=== PATIENT | female | born 1945 | race Asian ===

== ENCOUNTER → 2017-11-28 | Outpatient (CLI) | payer MEDICARE ==
[~2017-11-28] MED LIST: ALBU3IS; AMLO5; B Complex1 EAC2; BUDE6HFA; CALCAVITDA; Cholecalciferol1 GM; DIPH50 PO; Flovent Diskus50 MCG; Glucosamine-Ch1 EA23; MONT10T; MULVITMIND
[2017-11-28 12:42] LABS: BASOPHILS ABSOLUTE AUTO 0.03 K/mm3 (0.00-0.23); BASOPHILS PERCENT AUTO 0 % (0-2); EOSINOPHILS ABSOLUTE AUTO 0.53 K/mm3 (0.00-0.68); EOSINOPHILS PERCENT AUTO 7 % (0-6); Hematocrit 37.9 % (33.0-51.0); Hemoglobin 12.9 g/dL (11.5-16.0); IMMATURE GRAN ABSOLUTE AUTO 0.02 K/mm3 (0.00-0.10); IMMATURE GRAN PERCENT AUTO 0 % (0-1); LYMPHOCYTES ABSOLUTE AUTO 0.98 K/mm3 (0.84-5.20); LYMPHOCYTES PERCENT AUTO 12 % (21-46); MONOCYTES ABSOLUTE AUTO 0.66 K/mm3 (0.16-1.47); MONOCYTES PERCENT AUTO 8 % (4-13); Mean Corpuscular HGB 29.7 pg (26.0-34.0); Mean Corpuscular Volume 87 fL (80-100); Mean Platelet Volume 8.9 fL (9.1-12.4); NEUTROPHILS PERCENT AUTO 73 % (41-73); Platelet Count 309 K/mm3 (150-400); RDW Coefficient Variation 12.1 % (11.7-14.2); Red Blood Cell Count 4.35 M/mm3 (3.80-5.20); White Blood Cell Count 8.12 K/mm3 (4.00-11.30)
[2017-11-28 12:46] LABS: Anion Gap 13 mmol/L (6-16); Blood Urea Nitrogen 9 mg/dL (8-24); Bun/Creatinine Ratio 13.2 (12.0-20.0); CO2, Blood 27 mmol/L (21-32); Calcium, Blood 9.1 mg/dL (8.5-10.1); Chloride, Blood 99 mmol/L (98-108); Creatinine, Blood 0.68 mg/dL (0.40-1.00); Glomerular Filtration Rate >60 (60-); Glucose, Blood 104 mg/dL (70-99); Potassium, Blood 3.2 mmol/L (3.5-5.5); Sodium, Blood 139 mmol/L (136-145)
== END | disposition home or self-care (01) ==
LOC: LAB EV 12:35 → LAB SHORT 12:35
PROVIDERS: Physician Assistant Surgical
DX: J18.0 Bronchopneumonia, unspecified organism (principal); J44.1 Chronic obstructive pulmonary disease with (acute) exacerbation
CPT/HCPCS: 80048; 85025; 87070; 87205

== ENCOUNTER → 2018-03-25 | Outpatient (CLI) | payer MEDICARE, OTHER ==
[~2018-03-25] MED LIST changes: +CEFD300 PO; +Zithromax250 MG PO
== END | disposition home or self-care (01) ==
LOC: LAB EV 12:05
DX: R91.8 Other nonspecific abnormal finding of lung field (principal)
CPT/HCPCS: 87070; 87205

== ENCOUNTER 2018-07-27 08:51 | Inpatient (IN) | payer MEDICARE, OTHER ==
[~2018-07-27] VITALS: Ht 154.9 cm; Wt 33.3 kg
[~2018-07-27 08:51] MED LIST changes: -ALBU3IS; +ALBU3IS INH; -AMLO5; +AMLO5 PO; +BUDE6HFA INH; -MONT10T; +MONT10T PO
[2018-07-27 10:17] LABS: Hematocrit 40.9 % (33.0-51.0); Hemoglobin 13.5 g/dL (11.5-16.0); Mean Corpuscular HGB 29.2 pg (26.0-34.0); Mean Corpuscular Volume 89 fL (80-100); Mean Platelet Volume 9.4 fL (9.1-12.4); Platelet Count 160 K/mm3 (150-400); RDW Coefficient Variation 12.2 % (11.7-14.2); RDW Standard Deviation 39.8 fL (35.1-46.3); Red Blood Cell Count 4.62 M/mm3 (3.80-5.20); White Blood Cell Count 7.33 K/mm3 (4.00-11.30)
[2018-07-27 10:36] LABS: Alanine Aminotransfer (ALT/SGP 41 U/L (12-78); Albumin, Blood 3.6 g/dL (3.4-5.0); Albumin/Globulin Ratio 0.9 (0.8-1.8); Alk Phos 105 U/L (50-136); Anion Gap 7 mmol/L (6-16); Aspartate Aminotrans (AST/SGOT 40 U/L (12-37); Bilirubin, Total 0.4 mg/dL (0.1-1.0); Blood Urea Nitrogen 11 mg/dL (8-24); Bun/Creatinine Ratio 23.3 (12.0-20.0); CO2, Blood 30 mmol/L (21-32); Calcium, Blood 8.6 mg/dL (8.5-10.1); Chloride, Blood 96 mmol/L (98-108); Creatinine, Blood 0.47 mg/dL (0.40-1.00); Globulin, Blood 3.8 g/dL (2.2-4.0); Glomerular Filtration Rate >60 (60-); Glucose, Blood 127 mg/dL (70-99); Potassium, Blood 3.9 mmol/L (3.5-5.5); Sodium, Blood 133 mmol/L (136-145); Total Protein, Blood 7.4 g/dL (6.4-8.2)
[2018-07-27 10:37] LABS: BASOPHILS PERCENT MAN 0 % (0-2); EOSINOPHILS PERCENT MAN 0 % (0-6); LYMPHOCYTES ABSOLUTE MAN 0.43 K/mm3 (0.84-5.20); LYMPHOCYTES PERCENT MAN 6 % (21-46); MONOCYTES ABSOLUTE MAN 0.14 K/mm3 (0.16-1.47); MONOCYTES PERCENT MAN 2 % (4-13); NEUTROPHILS ABSOLUTE MAN 6.74 K/mm3 (1.96-9.15); SEG NEUTROPHILS PERCENT MAN 92 % (41-73); TOTAL CELLS COUNTED 100
[2018-07-27] MEDS ORDERED: POTA10T PO (12:45)
[2018-07-27 17:27] LABS: Base Excess Venous 9.7 mmol/L; Bicarbonate Venous 31.2 mmol/L (24.0-30.0); PCO2 Venous 53.4 mmHg (38-42); PO2 Venous 41.4 mmHg (38-42); pH Blood Venous 7.42 (7.34-7.37)
--- NOTE | 2018-07-27 18:17 | NUR ---
PT ARRIVED TO THE MEDICAL FLOOR FORM THE ER AROUND 1500, A/OX3 UP WITH MINIMAL ASSIST TO THE BED, APPEARS TO BE MORE SOB WITH ACTIVITY, THE PT IS ON OXYGEN AT 3L/MIN, THE PT WAS ORIENTED TO THE ROOM LAYOUT AND CALL SYSTEM, CALL LIGHT IN REACH, I AGREE WITH THE SN CARDOZO ADMISSION ASSESSMENT AND WAS PRESENT DURING THE ASSESSMENT
--- NOTE | 2018-07-27 18:48 | NUR ---
SHIFT SUMMARY PT ARRIVED ON THE MEDICAL FLOOR AT ABOUT 1500. PT IS A&OX3. PT HAS BEEN CALM AND COOPERATIVE. ADMISSION ASSESSMENT COMPLETED AND PT ORIENTED TO THE ROOM. PT HAS BEEN LAYING IN BED WATCHING TV THIS AFTERNOON. 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 PT STATES NO PAIN AT THIS TIME. PT HAS NOT PRESENTED WITH SIGNS OF RESPIRATORY DISTRESS SINCE ARRIVING ON THE FLOOR. PT IS ON 3L OF O2. PT CURRENTLY EATING DINNER AND DENIES FURTHER NEEDS AT THIS TIME. WILL CONTINUE TO MONITOR.
--- NOTE | 2018-07-28 03:39 | NUR ---
SHIFT SUMMARY: PT IS ALERT AND ORIENTED. PT IS CALM AND COOPERATIVE WITH CARE. PT CALLS APPROPRIATELY. PT IS INDEPENDENT IN THE ROOM. PT ON 3 L O2 VIA NC KEEPING SATS > 90%. PT SLEPT MUCH OF THE NIGHT WHEN NOT DISTURBED. PT DENIES PAIN, NAUSEA, AND VOMITING. LUNGS ARE WHEEZY THROUGHOUT. NO ACUTE CHANGES OR COMPLICATIONS OVERNIGHT. WILL CONTINUE TO MONITOR.
[2018-07-28 04:41] LABS: BASOPHILS PERCENT AUTO 0 % (0-2); EOSINOPHILS PERCENT AUTO 0 % (0-6); Hematocrit 41.1 % (33.0-51.0); Hemoglobin 13.7 g/dL (11.5-16.0); Mean Corpuscular HGB 28.5 pg (26.0-34.0); Mean Corpuscular HGB Conc 33.3 g/dL (31.5-36.5); Mean Platelet Volume 9.3 fL (9.1-12.4); Platelet Count 171 K/mm3 (150-400); RDW Coefficient Variation 12.1 % (11.7-14.2); RDW Standard Deviation 37.7 fL (35.1-46.3); Red Blood Cell Count 4.81 M/mm3 (3.80-5.20); White Blood Cell Count 3.31 K/mm3 (4.00-11.30)
[2018-07-28 04:56] LABS: Anion Gap 6 mmol/L (6-16); Blood Urea Nitrogen 13 mg/dL (8-24); Bun/Creatinine Ratio 27.7 (12.0-20.0); CO2, Blood 32 mmol/L (21-32); Calcium, Blood 8.6 mg/dL (8.5-10.1); Chloride, Blood 99 mmol/L (98-108); Creatinine, Blood 0.47 mg/dL (0.40-1.00); Glomerular Filtration Rate >60 (60-); Glucose, Blood 129 mg/dL (70-99); Potassium, Blood 3.9 mmol/L (3.5-5.5); Sodium, Blood 137 mmol/L (136-145)
[2018-07-28 04:57] LABS: IMMATURE GRAN ABSOLUTE AUTO 0.01 K/mm3 (0.00-0.10); IMMATURE GRAN PERCENT AUTO 0 % (0-1); LYMPHOCYTES ABSOLUTE AUTO 0.61 K/mm3 (0.84-5.20); LYMPHOCYTES PERCENT AUTO 18 % (21-46); MONOCYTES ABSOLUTE AUTO 0.38 K/mm3 (0.16-1.47); MONOCYTES PERCENT AUTO 12 % (4-13); Mean Corpuscular Volume 85 fL (80-100); NEUTROPHILS ABSOLUTE AUTO 2.31 K/mm3 (1.96-9.15); NEUTROPHILS PERCENT AUTO 70 % (41-73)
--- NOTE | 2018-07-28 17:22 | NUR ---
SHIFT SUMMARY PT HAS BEEN ALERT AND ORIENTED THROUGH THIS SHIFT. PT IS CALM AND COOPERATIVE. PT HAS BEEN SITTING UP IN BED THROUGHOUT THE DAY. PT DENIES PAIN. PT REMAINS ON 3L O2 AND STATES THAT SHE STIL FEELS SHORT OF BREATH. LUNG SOUNDS CONTINUE TO BE TIGHT AND WHEEZY. PT STATES NO ADDITIONAL NEEDS AT THIS TIME. WILL CONTINUE TO MONITOR.
--- NOTE | 2018-07-28 18:24 | NUR ---
I AGREE WITH THE SN JULIANE MIRELES ASSESSMENT AND CARE OF THE PT TODAY
--- NOTE | 2018-07-29 03:59 | NUR ---
SHIFT SUMMARY: PT IS ALERT AND ORIENTED. PT IS CALM AND COOPERATIVE WITH CARE. PT CALLS APPROPRIATELY. PT IS INDEPENDENT IN THE ROOM. PT REPORTS MINOR SOB UPON EXERTION. PT DENIES PAIN, NAUSEA, AND VOMITING. PT SLEPT MUCH OF THE NIGHT WHEN NOT DISTURBED. POSSIBLE DC TODAY. NO ACUTE CHANGES OR COMPLICATIONS THIS SHIFT. BED IN LOW POSITION, CALL LIGHT WITHIN REACH. WILL REPORT TO DAY NURSE.
--- NOTE | 2018-07-29 15:49 | NUR ---
SHIFT SUMMARY 72 YR OLD FEMALE ADMITTED FOR HYPOXIA/COPD EXACERBATION. FULL CODE. REGULAR DIET. HARD OF HEARING. A&O X4, INDEPENDENT IN ROOM. LUNGS EXPIRATORY WHEEZES/SOB EPISODES-RECEIVING RT TREATMENTS. O2 IS AT 3 LPM (2 LPM @ HOME). LIVES ALONE. HOSPITALIST DECREASED FREQUENCY OF IV SOLUMEDROL TODAY FROM Q8 TO Q12. HOSPITALIST HOPES PT CAN BE WEANED TO ORAL STEROIDS TOMORROW. HX: COPD, HTN, BREAST CANCER. PT MAY BE ABLE DC IN TWO DAYS.
--- NOTE | 2018-07-29 16:47 | NUR ---
CALLED HOSPITALIST PT DIAGNOSED 7 YRS AGO WITH ASPERGILLUS INFECTION (FUNGAL). SHE WAS TOLD SHE THEN THAT SHE IS MORE SUSCEPTIBLE FOR THESE TYPES OF INFECTIONS. SHE IS CURIOUS IF A FUNGAL TYPE OF INFECTION COULD BE A POSSIBLE FACTOR IN THIS CURRENT EXACERBATION. HOSPITALIST STATED HE WOULD LOOK INTO THIS POSSIBILITY, PERHAPS ORDER A SPUTUM SAMPLE OR OTHER DIAGNOSTIC TEST, IF WARRANTED.
--- NOTE | 2018-07-30 03:49 | NUR ---
07/30/18 0345 PT SLEEPING WELL. NO DISTRESS NOTED.
--- NOTE | 2018-07-30 15:47 | NUR ---
[facility] VISIT AFTER REFERRAL REC'D DUE TO END STAGE PULM DISEASE. Review of EMR and Case conferenced with RN prior to visit. Johanna is well known to me from her participation in Pulmonary Rehab approx 8 years ago. She has had very few hospitalizations despite severe end stage COPD and bronchiectasis, with an FEV1 of 23% on most recent PFT. She sees Dr Kahn as her PCP and Dr Davis as her tool chaser most recently. She reports staying as active as she can. She also has a history of MV regurgitation and breast CA. She was evaluated in [place] for a lung transplant and was denied due to "too old and underweight" per pt. She has been O2 dependent with 2+L/min via nc at home with more when exerting herself. She lost her of 40+ years 3.5 years ago. She reports it was sudden and unexpected. "His heavy smoking and drining finally caught up with him". He was hospitalized for 2 weeks prior to his and in ICU for part of that time. She has three sons locally, grandchildren and four great grandchildren who are very young. She talked about her sadness re: not being able to hold or play with her great grandchildren due to her her SOBOE and generalized weakness. She is cachectic and sitting in bed crosslegged with elbows on knees in tripod position. She reports she cannot sit back in bed due to SOB. She is SOB with conversation. She reports being improved from time of admission but not as improved as she had hoped. She has done her best to stay out of the hospital and wants to return home [place]. She's hoping for tomorrow. She is currently a full code. We discussed this and what it meant at length. She thinks she did a "will" in [place] when being evaluated for pulmonary intervention but does not have a copy or know where it is. She said her oldest son, Jorge L, would be her surrogate decision maker in the event she was unable to communicate her wishes. She thinks she marked all the boxes "as my physician recommends". We discussed the probability that her regular Drs would not be the one seeing her in a critical care situation. Pt spoke about her experience, having to make decisions for her before his . She started expressing her wishes RE advanced care planning & I asked if she would like me to document her wishes. I offered to complete a POLST with her today. Pt and I began reviewing the POLST and discussing each option in detail. As we were discussing CPR and her wishes, her son KAROLYN Zavala and grandchild arrived. At her request we continued the conversation and I answered both her and her family's questions. Cedric is supportive of his mom's choices. He also was able to provide his brother Jorge L's contact information as the oldest son and surrogate decision maker. I noted this on the POLST, page 2. Pt states she does not want CPR. She does not want intubation. She would like limited interventions, IV medications, hospitalization if required to try to improve her lungs. She would accept bipap use and all interventions short of cardiopulmonary rescusitation, CPR and intubation. After POLST completed with pt and family, pt's wishes shared with her RN and . Order obtained to change pt's Code status to DNR per her wishes. REquested that Dr sign POLST. Once that is done, copies will be sent to Medical records for scanning into EMR and original given to pt. We discussed measures to limit exposure to lung irritants. I recommended nasal flush qhs and not just in the am as pt has been doing. Pt has had issue with mold in her mattress and we discussed removing mold or mattress if mold still present. Will request follow up per high risk cardiopulmonary follow up after d/c. Pt has completed MI previously and has continued to follow instructions and good self care to the best of her ability. She's always been very motivated to improve her health. She has not smoked for 25+ years but had second hand smoke from her . 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 All three sons are active in her life and supportive of her per pt and son, Cedric.
--- NOTE | 2018-07-30 17:12 | NUR ---
SHIFT SUMMARY NO CHANGES IN ASSESMENT AT THIS TIME. PT STARTING ORAL STEROIDS THIS EVENING. VSS. PT IND IN ROOM & DENIES NEEDS AT THIS TIME. PT CHANGED TO DNR STATUS. WILL CONTINUE TO MONITOR UNTIL TURNOVER IS COMPLETE. PT EXPECTED TO DC TOMORROW.
--- NOTE | 2018-07-31 04:55 | NUR ---
07/31/18 0500 AWAKENED FOR VITALS. C/O "BURNING STOMACH PROBABLY FROM THE PREDNISONE". COLD MILK GIVEN TO DRINK. SLEPT WELL WITH OCC TRIPS TO THE BATHROOM. ELEVATED BP THIS SHIFT.. DIABETES MANAGER HOSPITALIST WAS NOTIFIED LAST NIGHT BUT DECLINED ANY PRN ANTI-HYPERTENSIVE.
[2018-07-31 05:27] LABS: PCO2 Arterial 53.8 mmHg (35-45); PO2 Arterial 74.6 mmHg (80-100); pH Blood Arterial 7.44 (7.35-7.45)
[2018-07-31] MEDS ORDERED: ALBU2.5V5 NEB (12:30)
[2018-07-31] MEDS ORDERED: PRED10 PO (12:32)
[2018-07-31] MEDS ORDERED: CEFD300 PO (12:33)
[2018-07-31] MEDS ORDERED: OMEPRAZOLE20 MG PO (12:33)
--- NOTE | 2018-07-31 13:54 | NUR ---
PT DISCHARGED. PT DISCHARGED AT 1346. PT IN STABLE CONDITION WITH VSS. PT & DAUGHTER EDUCATED ON DC INSTRUCTIONS & FOLLOW UP APPOINTMENTS. MEDS FAXED TO [facility]. PT WHEELED OUT & DRIVEN HOME BY DAUGHTER. IV REMOVED & INTACT.
== END 2018-07-31 13:47 | disposition home or self-care (01) | DRG 189 ==
LOC: ER 08:51 → MEDS 14:15 → ER 14:15 → MEDS 14:50
PROVIDERS: Emergency Medicine; Internal Medicine Pulmonary Disease; ADMIT Student in an Organized Health Care Education/Training Program
DX: J96.21 Acute and chronic respiratory failure with hypoxia (principal); J43.9 Emphysema, unspecified; J96.22 Acute and chronic respiratory failure with hypercapnia; I10 Essential (primary) hypertension; I34.0 Nonrheumatic mitral (valve) insufficiency; Z66 Do not resuscitate; Z99.81 Dependence on supplemental oxygen; Z87.891 Personal history of nicotine dependence; Z88.1 Allergy status to other antibiotic agents; Z88.8 Allergy status to other drugs, medicaments and biological substances; Z79.51 Long term (current) use of inhaled steroids; Z79.899 Other long term (current) drug therapy
CPT/HCPCS: 36415; 36600; 71046; 71250; 80048; 80053; 82803; 85025; 93005; 93010; 94640; 94644; 94667; 94760; 96365; 96366; 96367; 96372; 96375; 96376; 99285-25; G0378; J0696; J1650; J2930; J3475; J7050; J7512